=== PATIENT | female | born 1985 | race Caucasian/White ===

== ENCOUNTER 2017-02-04 12:28 | Emergency (ER) | payer MEDICAID ==
[~2017-02-04] VITALS: Ht 152.4 cm; Wt 108.7 kg
[~2017-02-04 12:28] MED LIST: SULF1TAB24 PO
[2017-02-04 12:37] VITALS: BP 146/98
== END 2017-02-04 13:27 | disposition home or self-care (01) ==
LOC: ED 13:21
DX: Z00.00 Encounter for general adult medical examination without abnormal findings (principal); E66.9 Obesity, unspecified; Z88.6 Allergy status to analgesic agent
CPT/HCPCS: 99281

== ENCOUNTER 2017-03-20 19:55 | Emergency (ER) | payer MEDICAID ==
[~2017-03-20] VITALS: Ht 160 cm; Wt 109.1 kg
[2017-03-20] MEDS ORDERED: LIDOCAINE 1%, 20ML ONE (20:24)
[2017-03-20] MEDS ORDERED: LIDOCAINE 1%, 20ML SQ ONE (20:30)
[2017-03-20 20:35] VITALS: BP 127/78
== END 2017-03-20 22:39 | disposition home or self-care (01) ==
LOC: ED 20:34
DX: L02.213 Cutaneous abscess of chest wall (principal); L02.416 Cutaneous abscess of left lower limb; F17.200 Nicotine dependence, unspecified, uncomplicated; Z88.5 Allergy status to narcotic agent
CPT/HCPCS: 10061; 99283; J3490

== ENCOUNTER 2017-05-10 00:42 | Emergency (ER) | payer MEDICAID ==
[~2017-05-10] VITALS: Ht 165.1 cm; Wt 108.0 kg
[2017-05-10 00:45] VITALS: BP 155/107
[2017-05-10] MEDS ORDERED: FLUORESCEIN OPHTHALMIC 1 MG STRIP ONE (01:10)
[2017-05-10] MEDS ORDERED: PROPARACAINE OPHTH 0.5%, 15ML ONE (01:11)
== END 2017-05-10 02:03 | disposition home or self-care (01) ==
LOC: ED 01:57
DX: H11.32 Conjunctival hemorrhage, left eye (principal)
CPT/HCPCS: 99283

== ENCOUNTER 2017-05-10 16:29 | Emergency (ER) | payer MEDICAID ==
[~2017-05-10] VITALS: Ht 160 cm; Wt 105.7 kg
[2017-05-10 16:32] VITALS: BP 141/90
[2017-05-10] MEDS ORDERED: FLUORESCEIN OPHTHALMIC 1 MG STRIP ONE (16:55)
[2017-05-10] MEDS ORDERED: PROPARACAINE OPHTH 0.5%, 15ML ONE (16:56)
[2017-05-10] MEDS ORDERED: PROPARACAINE OPHTH 0.5%, 15ML EACHEYE ONE (17:00)
[2017-05-10] MEDS ORDERED: FLUORESCEIN OPHTHALMIC 1 MG STRIP EACHEYE ONE (17:00)
== END 2017-05-10 18:14 | disposition home or self-care (01) ==
LOC: ED 17:42
DX: H10.232 Serous conjunctivitis, except viral, left eye (principal); H11.32 Conjunctival hemorrhage, left eye; F17.200 Nicotine dependence, unspecified, uncomplicated
CPT/HCPCS: 99283

== ENCOUNTER 2017-06-15 06:37 | Emergency (ER) | payer MEDICAID ==
[~2017-06-15] VITALS: Ht 160 cm; Wt 107.0 kg
[2017-06-15] MEDS ORDERED: DIPHENHYDRAMINE 50 MG/ML, 1ML IVPush ONE (07:30)
[2017-06-15] MEDS ORDERED: methylPREDNISolone SOD SUCC 125 MG/2 ML IVPush ONE (07:30)
[2017-06-15] MEDS ORDERED: methylPREDNISolone SOD SUCC 125 MG/2 ML ONE (07:44)
[2017-06-15] MEDS ORDERED: DIPHENHYDRAMINE 50 MG/ML, 1ML ONE (07:44)
[2017-06-15 09:43] VITALS: BP 92/48
== END 2017-06-15 09:48 | disposition home or self-care (01) ==
LOC: ED 07:15
DX: F41.0 Panic disorder [episodic paroxysmal anxiety] (principal); R00.2 Palpitations; F10.129 Alcohol abuse with intoxication, unspecified
CPT/HCPCS: 36415; 71010; 80307; 93005; 96374; 96375; 99285; J1200; J2930; G0479

== ENCOUNTER 2017-10-04 02:20 | Emergency (ER) | payer MEDICAID ==
[~2017-10-04] VITALS: Ht 160 cm; Wt 111.9 kg
[2017-10-04 02:23] VITALS: BP 126/81
[2017-10-04] MEDS ORDERED: LIDOCAINE 1%, 20ML ONE (03:07)
[2017-10-04] MEDS ORDERED: LIDOCAINE 1%, 20ML SQ ONE (03:30)
[2017-10-04] MEDS ORDERED: IBUPROFEN 200 MG TABLET ONE (03:49)
[2017-10-04] MEDS ORDERED: IBUPROFEN 200 MG TABLET PO ONE (04:00)
== END 2017-10-04 04:21 | disposition home or self-care (01) ==
LOC: ED 03:01
DX: L03.116 Cellulitis of left lower limb (principal); L02.412 Cutaneous abscess of left axilla
CPT/HCPCS: 10061; 99284

== ENCOUNTER 2018-10-18 03:53 | Emergency (ER) | payer MEDICAID ==
[~2018-10-18] VITALS: Ht 160 cm; Wt 110.0 kg
--- NOTE | 2018-10-18 04:06 | NUR ---
PT. AMBULATORY TO ROOM FROM TRIAGE; PT. CRYING AND STATING TO FAMILY "I FEEL LIKE I'M HAVING A HEART ATTACK." FAMILY MEMBER STATING "YOU'RE NOT HAVING A HEART ATTACK, YOU'RE HAVING ANXIETY, THEY JUST CHECKED". EKG WAS COMPLETED IN TRIAGE AND PRESENTED TO ERMD.
--- NOTE | 2018-10-18 04:20 | NUR ---
PT. TO ED WITH C/O SUDDEN ONSET LEFT SIDE CP AND SOB IMMEDIATLY AFTER "SNEEZING FIT". PT. REPORTS PAIN HEAVY AND DENIES RADIATION. WORSE WITH PALPATION. PT. HAS STRONG ETOH ODOR AND DOES ADMIT TO ETOH TONIGHT "THE PAIN CAME ON ALL THE SUDDEN WHILE I WAS AT THE BAR". +SMOKER. PT. PLACED ON CONTINUOUS PULSE OX, B/P, AND HEART MONITORS. CALL LIGHT PLACED IN REACH. FAMILY AT FOR SUPPORT. ALL SFAETY MEASURES OBSERVED. OFFERED PT. BLANKET; SHE STATED "NO! IT'S HOT SHIT IN HERE!".
[2018-10-18] MEDS ORDERED: KETOROLAC 30 MG/1 ML ONE (04:25)
[2018-10-18] MEDS ORDERED: LORazepam 0.5MG TABLET ONE (04:25)
[2018-10-18] MEDS ORDERED: LORazepam 0.5MG TABLET PO ONE (04:30)
[2018-10-18] MEDS ORDERED: KETOROLAC 30 MG/1 ML IM ONE (04:30)
--- NOTE | 2018-10-18 04:31 | NUR ---
PT. MEDICATED PER NOV. PT. AMBULATORY TO BR WITH STEADY GAIT.
--- NOTE | 2018-10-18 05:11 | NUR ---
PT. WAS REQUESTING A SLING TO HOLD HER LEFT ARM UP STATING "MY CHEST FEELS BETTER IF I HOLD MY ARM LIKE THIS". MILIND VASQUEZ IN TO DISCUSS FINAL D/C PLAN WITH PT. AND EXPLAIN REASONS WHY WE WILL NOT BEING PROVIDING A SLING FOR LEFT SHOULDER. PT. VERBALIZED UNDERSTANDING OF THIS.
[2018-10-18 05:13] VITALS: BP 117/78
== END 2018-10-18 05:12 | disposition home or self-care (01) ==
LOC: ED 05:06
DX: M94.0 Chondrocostal junction syndrome [Tietze] (principal); F17.200 Nicotine dependence, unspecified, uncomplicated
CPT/HCPCS: 71045; 93005; 96372; 99283; J1885

== ENCOUNTER 2019-03-04 03:00 | Emergency (ER) | payer MEDICAID ==
[~2019-03-04] VITALS: Ht 160 cm; Wt 110.0 kg
--- NOTE | 2019-03-04 03:32 | NUR ---
ABBIE. REPORT RECEIVED FROM EMS. +ETOH. PT C/O BILATERAL LOWER ABD PAIN SINCE 1:30 AM TODAY. PT DENIES N/V/D AT THIS TIME. BP/SPO2 MONITORS IN PLACE. CALL LIGHT WITHIN REACH.
--- NOTE | 2019-03-04 03:33 | NUR ---
PT AMB TO BR AND BACK TO ROOM WITH STEADY GAIT. UA SENT.
[2019-03-04 03:40] LABS: BASOPHILS # (AUTO) 0.03 x10^3/uL (0-0.1); BASOPHILS % (AUTO) 0 % (0-1); EOSINOPHILS # (AUTO) 0.07 x10^3/uL (0-0.4); EOSINOPHILS % (AUTO) 1 % (1-7); LYMPHOCYTES # (AUTO) 2.67 x10^3/uL (1-3.4); LYMPHOCYTES % (AUTO) 30 % (22-44); MD NO; MEAN CORPUSCULAR HEMOGLOBIN 31.8 pg (27.0-34.8); MEAN CORPUSCULAR HGB CONC 33.9 g/dL (32.4-35.8); MEAN CORPUSCULAR VOLUME 93.9 fL (80-100); MEAN PLATELET VOLUME 8.2 fL (7.4-10.4); MONOCYTES # (AUTO) 0.25 x10^3/uL (0.2-0.8); MONOCYTES % (AUTO) 3 % (2-9); NEUTROPHILS # (AUTO) 5.88 x10^3/uL (1.8-6.8); NEUTROPHILS % (AUTO) 66 % (42-75); PLATELET COUNT 274 x10^3/uL (130-400); RED BLOOD COUNT 4.65 x10^6/uL (3.82-5.3); RED CELL DISTRIBUTION WIDTH 13.1 % (9.6-15.2)
[2019-03-04 03:42] LABS: HCG UR SG 1.007 (1.003-1.030); MICROSCOPIC AUTO
[2019-03-04 03:43] LABS: CULTURE INDICATED? NO
[2019-03-04 03:52] LABS: ALANINE AMINOTRANSFERASE 37 U/L (12-78); ALBUMIN 3.9 g/dL (3.4-5.0); ANION GAP 5 mmol/L (5-15); CALCIUM 8.1 mg/dL (8.5-10.1); CHLORIDE 115 mmol/L (98-107); CREATININE 0.77 mg/dL (0.55-1.02)
[2019-03-04 03:54] LABS: ALKALINE PHOSPHATASE 48 U/L (45-117); BILIRUBIN,TOTAL 0.2 mg/dL (0.2-1.0); TOTAL PROTEIN 7.1 g/dL (6.4-8.2)
[2019-03-04 04:50] VITALS: BP 90/36
--- NOTE | 2019-03-04 05:32 | NUR ---
PT GIVEN DC INSTRUCTIONS AND SCRIPT. PT EDUCATED REGARDING DC MEDICATION. PT'S AOX4. RESPS EVEN AND UNLABORED. NO ACUTE DISTRESS AT DC.
== END 2019-03-04 05:33 | disposition home or self-care (01) ==
LOC: ED 03:23
DX: R10.84 Generalized abdominal pain (principal); F10.120 Alcohol abuse with intoxication, uncomplicated; E66.9 Obesity, unspecified
CPT/HCPCS: 36415; 80053; 80307; 81001; 81025; 83690; 85025; 99283

== ENCOUNTER 2019-10-04 03:57 | Emergency (ER) | payer MEDICAID ==
--- NOTE | 2019-10-04 04:12 | NUR ---
Pt was picked up by RAQUEL from the [facility] for falling asleep at the bar and urinating on self. Pt asleep on gurney. Pt repsonsive to painful stimuli. Pt placed on pulse ox/HR monitor and found to be 88% on RA. Pt placed on 2L NC. Suction at bedside. Unable to complete full triage d/t pt state.
--- NOTE | 2019-10-04 04:15 | NUR ---
Per AMPAROSA, pt denied any home medications.
--- NOTE | 2019-10-04 05:03 | NUR ---
PA at bedside. Pt arousable to sternal rub, answers questions and then falls back asleep.
--- NOTE | 2019-10-04 05:56 | NUR ---
Pt actively repositioning self.
--- NOTE | 2019-10-04 06:57 | NUR ---
Report given to GERARD Cody
--- NOTE | 2019-10-04 07:01 | NUR ---
report from víctor rice. as
--- NOTE | 2019-10-04 07:38 | NUR ---
attempt to wake pt. alert to light physical stim. one word answers, declined water, goes back to sleep immediately. as
[2019-10-04 08:53] VITALS: BP 108/65
--- NOTE | 2019-10-04 08:54 | NUR ---
TASK RN: PT ARROUSES TO VERBAL STIMULI. PT SITS UP UNASSISTED AND REPOSITIONED SELF TO UPRIGHT POSITION. VSS, MEAL TRAY PROVIDED AND PT ENCOURAGE TO EAT. CALL LIGHT W/I REACH
== END 2019-10-04 09:21 | disposition home or self-care (01) ==
LOC: ED 09:00
DX: F10.120 Alcohol abuse with intoxication, uncomplicated (principal); Y90.9 Presence of alcohol in blood, level not specified
CPT/HCPCS: 99283

== ENCOUNTER → 2020-12-02 | Outpatient (CLI) | payer MEDICAID | END | disposition home or self-care (01) | LOC: RAD 06:18 | PROVIDERS: ATTEND Surgery | DX: Z01.818 Encounter for other preprocedural examination (principal); E66.01 Morbid (severe) obesity due to excess calories; Z68.41 Body mass index [BMI] 40.0-44.9, adult | CPT/HCPCS: 71046; 74240 ==

== ENCOUNTER 2021-01-21 07:47 | Outpatient (CLI) | payer MEDICAID ==
[~2021-01-21 07:47] MED LIST changes: +REGADENOSON 0.4 MG/5 ML SYRINGE ONE; +SULF-23 PO; -SULF1TAB24 PO
== END 2021-01-22 23:59 | disposition home or self-care (01) ==
LOC: CFH 07:47
PROVIDERS: ATTEND Surgery
DX: Z01.818 Encounter for other preprocedural examination (principal); E66.01 Morbid (severe) obesity due to excess calories; Z68.41 Body mass index [BMI] 40.0-44.9, adult
CPT/HCPCS: 78452; 93017; A9502; J2785